=== PATIENT | female | born 1980 | race Caucasian/White ===

== ENCOUNTER 2018-10-04 16:45 | Emergency (ER) | payer SELFPAY ==
[~2018-10-04] VITALS: Ht 167.6 cm; Wt 96.1 kg
[2018-10-04 16:55] VITALS: Ht 167.6 cm; Wt 96.1 kg
[2018-10-04] MEDS ORDERED: PROCHLORPERAZINE 10 MG INJ IV STA (20:09)
[2018-10-04] MEDS ORDERED: SOD CHLORIDE 0.9% 1,000 ML IV STA (20:09)
[2018-10-04] MEDS ORDERED: DIPHENHYDRAMINE 50 MG INJ IV STA (20:09)
[2018-10-04] MEDS ORDERED: KETOROLAC 30 MG INJ IV STA (20:09)
--- NOTE | 2018-10-04 20:26 | ERD ---
ER Documentation Chief Complaint Chief Complaint Complains of severe headache HPI This is a 38-year-old female who has headache that is frontal bilateral gradual in onset for the past 3 days. No nausea vomiting or dizziness. No trauma. No fever. She takes anti-inflammatories at home which help temporarily. Does not wear glasses or contacts. She is also complaining of having some spotting when she urinates for the past few days. However she denies any dysuria or frequency. ROS All systems reviewed and are negative except as per history of present illness. Medications Home Meds Active Scripts Ondansetron (Ondansetron Odt) 4 Mg Tab.rapdis, 4 MG PO Q6H PRN for NAUSEA AND/OR VOMITING, #20 TAB Prov:TESFAYE SEO PA-C 10/04/18 Acetaminophen/Aspirin/Caffeine* (Excedrin*) 1 Tab Tab, 1 TAB PO Q6, #30 TAB Prov:TESFAYE SEO PA-C 10/04/18 Allergies Allergies: Coded Allergies: No Known Allergy (Unverified , 10/04/18) PMhx/Soc Hx Cardiac Disorders: Yes (HTN) Hx Alcohol Use: No Hx Substance Use: No Hx Tobacco Use: No Smoking Status: Never smoker FmHx Family History: No diabetes Physical Exam Vitals Vital Signs Date Temp Pulse Resp B/P (MAP) Pulse Ox O2 O2 Flow FiO2 Time Delivery Rate 10/04/18 99.1 98 20 170/96 98 16:55 (120) Physical Exam INITIAL VITAL SIGNS: Reviewed by me GENERAL: Awake, alert and oriented x 4, well appearing, nontoxic, speaking in full sentences. No acute distress HEAD: Atraumatic NECK: Supple. No masses. Full range of motion. No meningismus. No midline tenderness. EYES: EOMI. PERRL. RESPIRATORY: Clear to auscultation bilaterally. Symmetric chest wall rise. No wheezing or rales. No accessory muscle use. CV: Regular rate and rhythm. No murmurs, rubs, or gallops. EXTREMITIES: No clubbing or cyanosis. No edema. Moving all extremities normally. BACK: No midline tenderness to palpation. No step-offs. SKIN: Warm and dry. No rash or petechiae. Neuro: M/S: Alert and oriented Face: EOMI, face and pharynx with normal sensation and function Motor: Normal strength throughout Sensation: Normal sensation throughout Speech: Normal Cerebel: Normal coordination Normal gait Normal finger to nose Results 24 hrs Laboratory Tests Test 10/04/18 20:22 10/04/18 20:27 Urine Color YELLOW Urine Clarity CLEAR Urine pH 6.0 Urine Specific [place] 1.027 Urine Ketones NEGATIVE mg/dL Urine Nitrite NEGATIVE mg/dL Urine Bilirubin NEGATIVE mg/dL Urine Urobilinogen 1+ mg/dL Urine Leukocyte Esterase NEGATIVE Joanne/ul Urine Microscopic RBC 2 /HPF Urine Microscopic WBC 3 /HPF Urine Squamous Epithelial Cells FEW /HPF Urine Mucus FEW /HPF Urine Hemoglobin 3+ mg/dL Urine Glucose NEGATIVE mg/dL Urine Total Protein NEGATIVE mg/dl POC Beta HCG, Qualitative NEGATIVE Current Medications Medications Dose Sig/Tarsha Start Time Status Last (Trade) Ordered Route PRN Stop Time Admin Dose Reason Admin Sodium 1,000 ml @ Q1H STAT 10/04/18 10/04/18 Chloride 1,000 mls/hr IV 20:09 20:24 10/04/18 21:08 10 mg ONCE STAT 10/04/18 DC 10/04/18 Prochlorperaz IV 20:09 20:43 ine 10/04/18 20:10 (Compazine Inj) Ketorolac 30 mg ONCE STAT 10/04/18 DC 10/04/18 Tromethamine IV 20:09 20:44 (Toradol) 10/04/18 20:11 25 mg ONCE STAT 10/04/18 DC 10/04/18 Diphenhydrami IV 20:09 20:43 ne HCl 10/04/18 20:11 (Benadryl) Procedures/MDM 38-year-old female who has a headache. Her neurological examination is normal. Have a low suspicion for intracranial abnormality and therefore no CT scan was ordered but she was given IV fluids Toradol Benadryl and Compazine with improvement and then discharged with Excedrin and Zofran. Patient counseled regarding my diagnostic impression and care plan. Prior to discharge all questions answered. Pt agrees with treatment plan and understands strict return precautions. Pt is instructed to follow up with primary care provider within 24- 48 hours. Precautionary instructions provided including instructions to return to the ER if not improving or for any worsening or changing symptoms or concerns. Departure Diagnosis: Primary Impression: Headache Condition: Stable TESFAYE SEO PA-C Oct 04, 2018 20:26
[2018-10-04] MEDS ORDERED: EXCED PO (20:27)
[2018-10-04] MEDS ORDERED: ONDA4TAB14 PO (20:27)
[2018-10-04 21:30] VITALS: BP 177/92; PULSE 82; RESP 20
== END 2018-10-04 21:44 | disposition home or self-care (01) ==
LOC: FTE 16:45
DX: R51 Headache (principal); I10 Essential (primary) hypertension
CPT/HCPCS: 81001; 81025; 96374; 96375; 99284; J0780; J1200; J1885; J7030